=== PATIENT | male | born 1990 | race Caucasian/White ===

== ENCOUNTER 2021-07-19 20:30 | Emergency (ER) | payer BC ==
[~2021-07-19] VITALS: Ht 175.3 cm; Wt 94.3 kg
[2021-07-19 20:40] VITALS: BP 129/71
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
[2021-07-19] MEDS ORDERED: FLUORESCEIN OPTH STRIP 1 MG OP ONE (22:40)
--- NOTE | 2021-07-19 22:53 | NUR ---
DR. OJEDA AT BEDSIDE FOR VISUAL EXAM
--- NOTE | 2021-07-19 23:10 | NUR ---
PT READYING FOR DISCHARGE AND SAYS HE CHANGED HIS MIND AND WOULD LIKE TO HAVE THE CT PREVIOUSLY DISCUSSED WITH DR. OJEDA. DR. OJEDA MADE AWARE
--- NOTE | 2021-07-20 00:10 | NUR ---
PT RETURN FROM CT
[2021-07-20 01:48] VITALS: BP 100/55
--- NOTE | 2021-07-20 01:48 | NUR ---
Patient discharged with v/s stable. Written and verbal after care instructions given and explained. Patient verbalized understanding. Ambulatory with steady gait. All questions addressed prior to discharge. Advised to follow up with PMD.
== END 2021-07-20 01:48 | disposition home or self-care (01) ==
LOC: MED 20:30
DX: H53.8 Other visual disturbances (principal); J45.909 Unspecified asthma, uncomplicated; Z98.890 Other specified postprocedural states
CPT/HCPCS: 70450; 99284